=== PATIENT | male | born 1985 | race Caucasian/White ===

== ENCOUNTER 2020-11-16 07:46 | Inpatient (IN) | payer OTHER ==
[~2020-11-16] VITALS: Ht 177.8 cm; Wt 100.0 kg
[2020-11-16] VITALS (9 sets, daily range): BP systolic 96–116; BP diastolic 63–76; PULSE 70–125; TEMP 97.8–98.1
[2020-11-16] MEDS ORDERED: LOPRESSOR100 MG PO (09:00)
--- NOTE | 2020-11-16 09:00 | NUR ---
Admission assessment completed, alert/oriented, vital signs stable, HR 122 and EKG showed A.fib/RVR, densies chest discomfort, lungS CTA/no resp.difficulty, Notified of patient arrival and he is putting in orders nows, plans for KRISTEN and CV this mroning and then initiate Sotalol, I dorian reviewed patients home meds/allergies/pharmacy, 20G IV started to right wrist and LAbs obtained at this time as well, tele ordered received and pt. placed on monitor, he is independent in his room, denies other needs at this time
[2020-11-16] MEDS ORDERED: ELIQUIS 5MG PO (09:01)
[2020-11-16] MEDS ORDERED: TAPAZOLE10 MG PO ×2 (09:03→09:04)
[2020-11-16] MEDS ORDERED: ZESTRIL2.5 MG PO (09:04)
[2020-11-16 09:35] LABS: BASO % 0.5 % (0.0-2.0); EOS # 0.1 (0.0-0.7); EOS % 1.4 % (0-4.0); GRAN % 60.9 % (42.2-75.2); HEMATOCRIT 45.1 % (42.0-52.0); HEMOGLOBIN 14.5 g/dl (13.5-18.0); LYMPH # 1.9 (1.2-3.4); LYMPH % 29.8 % (20.0-51.0); MEAN CELL VOLUME 84 fl (80.0-100.0); MEAN CORPUSCULAR HEMOGLOBIN 27 pg (27.0-31.0); MEAN CORPUSCULAR HGB CONC 32 g/dl (33.0-37.0); MEAN PLATELET VOLUME 10.4 fl (7.4-10.4); MONO # 0.5 (0.1-0.6); MONO % 7.1 % (1.7-9.3); PLATELET COUNT 199 K/mm3 (130-400)
[2020-11-16 09:37] LABS: INR 1.2 (0.8-3.0)
[2020-11-16] MEDS ORDERED: LANOXIN 0.25M0.25 MG PO (09:37)
[2020-11-16] MEDS ORDERED: LASIX 40MG TABL40 MG PO (09:38)
[2020-11-16 09:47] LABS: CALCIUM 9.3 mg/dL (8.4-10.2); CREATININE, serum 0.87 (0.66-1.25); MAGNESIUM 2.1 mg/dL (1.6-2.3); POTASSIUM 4.3 mmol/L (3.4-5.0)
--- NOTE | 2020-11-16 09:54 | NUR ---
SW met with patient in room to discuss discharge plan. Patient reports that he lives at home with his Jessica #[phone]. Patient reports that he uses no DME to assist with ADL's and is independent with ADL's. Patient's PCP is Dr. Svetlana Graves and receives perscriptions through [facility]. Patient reports no issues affording perscriptions. Patient does not have a DPOA-HC established and does not wish to complete one at this time. Patient plans to return home with his at time of discharge. Discharge Plan: Home with .
--- NOTE | 2020-11-16 11:14 | NUR ---
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
[2020-11-17] VITALS: BP 96/58; PULSE 69; TEMP 97.7
--- NOTE | 2020-11-17 01:21 | NUR ---
Shift assessment completed. Patient alert and oriented. Patient denies chest pain or discomfort. Denies SOB, N/V, or diarrhea. VS stable. HR 73. All scheduled meds given per MAR. Call light within reach. Will continue to monitor.
[2020-11-17 04:00] VITALS: BP 104/59; PULSE 64; TEMP 97.7
--- NOTE | 2020-11-17 05:51 | NUR ---
Patient's HR remains stable throughout the night. VS stable. No acute distress noted. Call light in reach. Will continue to monitor.
[2020-11-17 07:02] LABS: BASO % 0.3 % (0.0-2.0); EOS # 0.1 (0.0-0.7); EOS % 1.3 % (0-4.0); GRAN # 4.7 (1.4-6.5); GRAN % 70.8 % (42.2-75.2); LYMPH # 1.5 (1.2-3.4); MEAN CELL VOLUME 85 fl (80.0-100.0); MEAN CORPUSCULAR HEMOGLOBIN 28 pg (27.0-31.0); MEAN CORPUSCULAR HGB CONC 33 g/dl (33.0-37.0); MEAN PLATELET VOLUME 11.1 fl (7.4-10.4); MONO # 0.4 (0.1-0.6); MONO % 5.5 % (1.7-9.3); PLATELET COUNT 172 K/mm3 (130-400); RED BLOOD COUNT 5.07 M/mm3 (4.20-5.60); REDCELL DISTRIBUTION WIDTH-CV 15.5 % (11.5-14.5)
[2020-11-17 07:10] LABS: CALCIUM 9.1 mg/dL (8.4-10.2); CREATININE, serum 0.9 (0.66-1.25); MAGNESIUM 2.1 mg/dL (1.6-2.3); POTASSIUM 4.2 mmol/L (3.4-5.0)
[2020-11-17 07:18] LABS: INR 1.3 (0.8-3.0); PROTHROMBIN TIME 13.9 SECONDS (9.7-12.8)
[2020-11-17 08:22] VITALS: BP 108/61; PULSE 85; TEMP 98.4
--- NOTE | 2020-11-17 08:29 | NUR ---
Assessment completed, alert/oriented, vital signs stable, denies pain or discomfort, heart RRR/ SR on tele s/p CV yesterday, QTC wnl and Sotalol dose will be given, lungs CTA/ denies any SOA or resp.difficulty, he is eating and drinking wihtout issues, independnt in his room and denies other needs at this time
--- NOTE | 2020-11-17 12:09 | NUR ---
Initial visit; Patient thanked Stem Frazer for stopping and stated he is doing good. Stem Frazer wished Jacques well and offered God's blessings.
[2020-11-17 12:26] VITALS: BP 101/54; PULSE 75; TEMP 98.2
[2020-11-17 16:50] VITALS: BP 112/60; PULSE 79; TEMP 98.2
[2020-11-17 20:39] VITALS: BP 102/58; PULSE 73; TEMP 97.7
--- NOTE | 2020-11-17 21:10 | NUR ---
Initial shift assessment done- denies pain, denies SOB, Tele on-SR 70.s,, no requests, watching baseball. denies need for a snack- states hes going home tomorrow
[2020-11-18 00:24] VITALS: BP 95/56; PULSE 65; TEMP 97.7
[2020-11-18 04:25] VITALS: BP 97/57; PULSE 62; TEMP 97.4
--- NOTE | 2020-11-18 06:32 | NUR ---
Quiet night- no requests, tele on , VSS
[2020-11-18 06:55] LABS: BASO % 0.4 % (0.0-2.0); EOS # 0.2 (0.0-0.7); EOS % 2.2 % (0-4.0); GRAN # 4.5 (1.4-6.5); GRAN % 64.8 % (42.2-75.2); HEMATOCRIT 43.7 % (42.0-52.0); HEMOGLOBIN 14.2 g/dl (13.5-18.0); LYMPH # 1.8 (1.2-3.4); LYMPH % 26.3 % (20.0-51.0); MEAN CELL VOLUME 84 fl (80.0-100.0); MEAN CORPUSCULAR HEMOGLOBIN 27 pg (27.0-31.0); MEAN CORPUSCULAR HGB CONC 33 g/dl (33.0-37.0); MEAN PLATELET VOLUME 11.2 fl (7.4-10.4); MONO # 0.4 (0.1-0.6); PLATELET COUNT 159 K/mm3 (130-400); REDCELL DISTRIBUTION WIDTH-CV 15.1 % (11.5-14.5)
[2020-11-18 07:00] LABS: INR 1.2 (0.8-3.0); PROTHROMBIN TIME 13.7 SECONDS (9.7-12.8)
[2020-11-18 07:12] LABS: CALCIUM 8.9 mg/dL (8.4-10.2); CREATININE, serum 0.9 (0.66-1.25); POTASSIUM 4.1 mmol/L (3.4-5.0)
[2020-11-18 08:14] VITALS: BP 108/68; PULSE 71; TEMP 98.6
--- NOTE | 2020-11-18 08:25 | NUR ---
Shift assessment complete. Pt sitting up in bed. A&Ox4. Denies chest pain, SOA, dizziness. Heart RRR. Lungs CTA. Bowel sounds active all quadrants. Reports soft formed BM yesterday and denies abdominal tenderness. Denies further needs. Call light in reach.
--- NOTE | 2020-11-18 12:20 | NUR ---
Discharge instructions discussed w/pt and all questions answered. IV to right hand removed w/tip intact. Pt escorted out to vehicle w/all belongings.
[2020-11-18] MEDS ORDERED: BETAPACE 80MG80 MG PO (12:28)
[2020-11-18] MEDS ORDERED: FARXIGA5 PO (12:29)
== END 2020-11-18 12:20 | disposition home or self-care (01) | DRG 310 ==
LOC: MEDICAL 07:46
PROVIDERS: ADMIT Internal Medicine Cardiovascular Disease
PROC: 5A2204Z Restoration of Cardiac Rhythm, Single (ICD-10-PCS; principal; 2020-11-16)
DX: I48.0 Paroxysmal atrial fibrillation (principal); I42.0 Dilated cardiomyopathy
CPT/HCPCS: J2704

== ENCOUNTER 2021-02-09 06:46 | Day surgery (SDC) | payer OTHER ==
[2021-02-09] VITALS (11 sets, daily range): BP systolic 90–111; BP diastolic 46–73; PULSE 40–62; TEMP 98.8
[~2021-02-09] VITALS: Ht 177.8 cm; Wt 96.4 kg
[~2021-02-09 06:46] MED LIST: BETAPACE 80MG80 MG PO; ELIQUIS 5MG PO; FARXIGA5 PO; LANOXIN 0.25M0.25 MG PO; LASIX 40MG TABL40 MG PO; LOPRESSOR100 MG PO; TAPAZOLE10 MG PO; ZESTRIL2.5 MG PO
[2021-02-09 07:19] LABS: HEMATOCRIT 44.5 % (42.0-52.0); HEMOGLOBIN 15.3 g/dl (13.5-18.0); MEAN CELL VOLUME 86 fl (80.0-100.0); MEAN CORPUSCULAR HEMOGLOBIN 29 pg (27.0-31.0); MEAN CORPUSCULAR HGB CONC 34 g/dl (33.0-37.0); MEAN PLATELET VOLUME 10.1 fl (7.4-10.4); PLATELET COUNT 216 K/mm3 (130-400); REDCELL DISTRIBUTION WIDTH-CV 15.2 % (11.5-14.5)
[2021-02-09 07:25] LABS: PROTHROMBIN TIME 10.8 SECONDS (9.7-12.8)
[2021-02-09 07:28] LABS: PARTIAL THROMBOPLASTIN TIME 30.5 SECONDS (26.0-37.0)
[2021-02-09 07:33] LABS: CREATININE, serum 1.24 mg/dL (0.72-1.25); POTASSIUM 3.8 mmol/L (3.5-4.5)
[2021-02-09] MEDS ORDERED: ENTRESTO 24 MG1 EACH PO (08:26)
[2021-02-09] MEDS ORDERED: ASPIRIN E.C. 8181 MG PO (08:36)
--- NOTE | 2021-02-09 08:54 | NUR ---
SEE MERGE FOR ALL MEDICATION ADMINISTRATION TIMES/DOSAGES AND INTRA/POST SEDATION ASSESSMENT.
--- NOTE | 2021-02-09 10:45 | NUR ---
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 Coretta, cathode ray tube salvage processor RN will notify him of pt's recent blood pressure readings, SBPs ranging in the 90s. Pt has remained assymptomatic and denies any concerns.
--- NOTE | 2021-02-09 13:05 | NUR ---
DC instructions were reviewed with pt and , both express understanding. Air was removed from TR band in 2ml increments with no bleeding or complications. Rt radial puncture site dressed with 2x2 and bandaid. Pt is steady on feet in room. INT DC'd with catheter intact. He is assisted out to 's car by wheelchair.
== END 2021-02-09 13:06 | disposition home or self-care (01) ==
LOC: COL.CAR 06:46
PROVIDERS: Internal Medicine Cardiovascular Disease
DX: I50.20 Unspecified systolic (congestive) heart failure (principal); I48.0 Paroxysmal atrial fibrillation; E05.90 Thyrotoxicosis, unspecified without thyrotoxic crisis or storm; I34.0 Nonrheumatic mitral (valve) insufficiency; F17.210 Nicotine dependence, cigarettes, uncomplicated
CPT/HCPCS: C1769; J1644; J2250; J3010; Q9967